=== PATIENT | male | born 1950 | race Hispanic/Latino ===

== ENCOUNTER → 2021-03-18 | Outpatient (CLI) | payer MEDICARE | END | disposition home or self-care (01) | LOC: RAH 14:43 | PROVIDERS: ATTEND Family Medicine | DX: M17.12 Unilateral primary osteoarthritis, left knee (principal) | CPT/HCPCS: 73562 ==

== ENCOUNTER → 2023-07-26 | Outpatient (CLI) | payer OTHER ==
[2023-07-26 21:36] VITALS: PULSE 64; RESP 12
[2023-07-26 22:07] VITALS: PULSE 61; RESP 12
[2023-07-26 22:38] VITALS: PULSE 59; RESP 12
[2023-07-26 23:01] VITALS: PULSE 59; RESP 12
[2023-07-26 23:35] VITALS: PULSE 59; RESP 10
[2023-07-27] VITALS (11 sets, daily range): PULSE 52–61; RESP 10–12
== END | disposition home or self-care (01) ==
LOC: SLP 20:41
PROVIDERS: ATTEND Family Medicine
DX: G47.33 Obstructive sleep apnea (adult) (pediatric) (principal); R06.83 Snoring; I10 Essential (primary) hypertension
CPT/HCPCS: 95810

== ENCOUNTER → 2025-02-13 | Outpatient (CLI) | payer OTHER ==
--- NOTE | 2025-02-14 01:37 | HMCIMG ---
STUDY: ULTRASOUND OF THE THYROID AND NECK CLINICAL INFORMATION: Nontoxic multinodular goiter. TECHNIQUE: High-resolution real-time ultrasound of the thyroid gland and adjacent neck soft tissues was performed using grayscale and color Doppler imaging. COMPARISON: None provided. FINDINGS: THYROID RIGHT LOBE: The right lobe measures approximately 5.8 x 2.2 x 1.5 cm and demonstrates homogeneous echotexture without focal nodule. THYROID LEFT LOBE: The left lobe measures approximately 3.6 x 1.7 x 1.5 cm and demonstrates homogeneous echotexture. A single complex cystic nodule is present, measuring approximately 4 x 2 x 4 mm, [id number], with smooth margins and no internal calcifications. By ACR TI-RADS criteria this nodule is classified as TI-RADS 2 (not suspicious). ISTHMUS: The isthmus measures approximately 4 mm in thickness and appears unremarkable. CERVICAL LYMPH NODES: No suspicious cervical lymphadenopathy is identified in the imaged regions. IMPRESSION: * Small complex cystic nodule in the left thyroid lobe measuring 4 mm, ACR TI-RADS 2 (not suspicious). No fine-needle aspiration or specific imaging follow-up is recommended for this nodule based on current TI-RADS size thresholds. * Otherwise normal-appearing thyroid gland without additional suspicious nodules. /Eugenio
== END | disposition home or self-care (01) ==
LOC: RAH 14:09
PROVIDERS: ATTEND Internal Medicine
DX: E04.2 Nontoxic multinodular goiter (principal)
CPT/HCPCS: 76536